=== PATIENT | male | born 1955 | race Caucasian/White ===

== ENCOUNTER 2017-05-22 05:30 | Observation (INO) | payer BC ==
[~2017-05-22] VITALS: Ht 180.3 cm; Wt 75.0 kg
[2017-05-22] MEDS ORDERED: RED0.25P PO (06:29)
[2017-05-22] MEDS ORDERED: CO Q100C9 PO (06:29)
[2017-05-22] MEDS ORDERED: CURCPOW PO (06:29)
[2017-05-22] MEDS ORDERED: VITA250T3 PO (06:29)
[2017-05-22] MEDS ORDERED: AMLO10 PO (06:29)
[2017-05-22] MEDS ORDERED: ACETAMINOPHEN 1000 MG/100 ML 100 ML IV ONE (06:51)
[2017-05-22] MEDS ORDERED: KETAMINE HCL 50 MG/5 ML SYRINGE ONE (06:51)
[2017-05-22] MEDS ORDERED: VANCOMYCIN HCL 1000 MG VIAL ONE (07:24)
[2017-05-22] MEDS ORDERED: ceFAZolin INJ 1,000 MG VIAL ONE ×2 (07:24→16:57)
[2017-05-22] MEDS ORDERED: SODIUM CHLOR 0.9% 250 ML INJ 250 ML ONE (07:25)
[2017-05-22] MEDS ORDERED: GENTAMICIN SULFATE 80 MG/2 ML VIAL ONE (07:25)
[2017-05-22] MEDS ORDERED: CHLORHEXIDINE GLUCONATE 4% SOLN 120 ML BTL TOPICAL SCH (07:30)
[2017-05-22] MEDS ORDERED: VANCOMYCIN 1000 MG/NS 250 ML (for <70 kg) IV SCH ×2 (07:30)
[2017-05-22] MEDS ORDERED: CEFAZOLIN INJ 2,000 MG in SODIUM CHLORIDE 0.9% INJ 100 ML IV SCH (07:30)
[2017-05-22] MEDS ORDERED: CHLORHEXIDINE GLUCONATE 2 % 1 PACK (2 CLOTHS) TOPICAL PRN (07:45)
[2017-05-22] MEDS ORDERED: POVIDONE IODINE 5% (ANTISEPSIS KIT) 4 APPLICATIONS EACH NARE PRN (07:45)
[2017-05-22] MEDS ORDERED: SODIUM CHLORID 0.9% 500 ML IV PRN (07:45)
[2017-05-22] MEDS ORDERED: METOPROLOL TARTRATE 25 MG TAB PO PRN (07:45)
[2017-05-22] MEDS ORDERED: LACTATED RINGER'S 1000 ML IV PRN (07:45)
[2017-05-22] MEDS ORDERED: NALOXONE HCL 0.4 MG/ML AMP IV PUSH PRN (10:15)
[2017-05-22] MEDS ORDERED: diphenhydrAMINE HCL 25 MG CAP PO PRN ×2 (10:15)
[2017-05-22] MEDS ORDERED: Post-op Orders (for Pharmacy) XX ONE (10:15)
[2017-05-22] MEDS ORDERED: MORPHINE SULFATE 4 MG/ML INJ IV PUSH PRN (10:15)
[2017-05-22] MEDS ORDERED: ONDANSETRON HCL 4 MG/2 ML VIAL IVP PRN (10:15)
--- NOTE | 2017-05-22 10:21 | PD.OP ---
cc: Varun Powell MD Operative Report Date of Surgery: May 22, 2017 Preoperative Diagnosis: Comminuted right calcaneus fracture Postoperative Diagnosis: Procedure: ORIF right calcaneus Anesthesia: Gen. Surgeon: Varun Powell Wire Coating Machine Operator(s): SINDHU Vazquez PA-C The surgical procedure was assisted by my physician mailroom assistant. My P.A. presence was necessary throughout this case for the manipulation and positioning of the surgical extremity. My P.A. was assisting me throughout the duration of this procedure. The skill set of a physician mailroom assistant was medically necessary to complete this procedure. During the surgical case the surgical brace maker was working at the back table and the physician mailroom assistant was directly assisting me. Operation and Findings: Tourniquet time: 80 minutes at 250 mmHg Implants used: Synthes Plan of activity: Nonweightbearing Informed consent obtained, operative site was marked. The foot and ankle were seen and evaluated this morning. Soft tissue swelling had significantly improved and appeared to be ready for surgery. He was brought to the operating room and placed on the operating room table. He was given intravenous sedation, general endotracheal anesthesia. He received IV antibiotics and was placed in the lateral decubitus position. Foot and leg were prepped with alcohol, followed by Hibiclens, draped in usual sterile fashion. A time out procedure was preformed. The procedure began with a 4 centimeter incision over the lateral aspect of the calcaneus centers over the subtalar joint. A full thickness flap was carefully elevated. The perineal tendons were also mobilized. Periosteum was elevated off the calcaneous. At this point the leg was elevated. The tourniquet was inflated. Attention was now turned to exposure of the calcaneus. The lateral wall was comminuted. A Steinmann pin was placed into the talus and into the calcaneus. Laminar biodiesel product development manager was now placed to help distract the fracture. Articular surface was now visualized. Articular surface was in several fragments. The medial fragment was elevated and reduced up to the talus and the K-wire was used to hold provisional fixation. Next, the lateral and posterior fragments of the posterior facet were reduced. The talus was used as a template for reduction. The K-wires were used to hold provisional fixation. The laminar biodiesel product development manager was now used to distract the posterior tuberosity. A Shands pin was placed to help joystick the transcript clerk tuberosity into appropriate position. Multiple K-wires result provisional fixation. Multiplanar fluoroscopy confirmed well aligned fracture. The anterior process was now reduced. This keyed into appropriate position. Additional K wires were used to hold provisional fixation. At this point a Synthes calcaneus plate was selected. Plate was placed underneath the peroneal tendons. Plate was provisionally held the bone with K wires. 2.7 cortical lag screws were placed through the plate to compress the posterior facet fragments. Good compression was obtained. Additional cortical and locking screws were placed into the plate. 4 small percutaneous incisions were made around the posterior heel. 4 long 3.5 cortical screws were placed in the posterior tuberosity into the anterior process. All screws were predrilled and premeasured for appropriate lengths. Fluoroscopy confirmed appropriate alignment of fracture. Final fluoroscopy confirmed well aligned fracture with well-placed hardware. Wound was thoroughly irrigated. Tourniquet was released. Hemostasis was confirmed. Fascia was closed with 0 Vicryl, subcutaneous tissues closed with 3-0 Vicryl, and skin was closed with 3-0 nylon. Sterile dressings were applied. Patient was placed into a well molded well-padded splint. Patient was transferred to recovery in stable condition. Varun Powell MD May 22, 2017 10:21
[2017-05-22] MEDS ORDERED: *MEPERIDINE 25 MG INJ VIAL PERIprocedural Use ONLY ONE (10:39)
[2017-05-22] MEDS ORDERED: *morphine SULFATE 4 MG/ML PERIprocedure ONLY ONE ×4 (10:43→11:03)
[2017-05-22] MEDS ORDERED: MIDAZOLAM HCL 2 MG/2 ML VIAL ONE (10:51)
[2017-05-22] MEDS ORDERED: *hydrOXYzine 25 MG VIAL PERIprocedural Use ONLY IM ONE (10:59)
[2017-05-22] MEDS ORDERED: KETOROLAC TROMETHAMINE 30 MG/ML (IVP) VIAL ONE (11:03)
[2017-05-22] MEDS ORDERED: HYDROmorphone HCL PF 2 MG/ML VIAL ONE ×3 (11:09→12:36)
[2017-05-22] MEDS: LACTATED RINGER'S 1000 ML INJ 1,000 ML IV SCH ×2 (11:30→20:06)
--- NOTE | 2017-05-22 11:32 | RADRPT ---
EXAM DATE/TIME: 05/22/2017 09:59 [facility] COMPARISON: No previous studies available for comparison. INDICATIONS : Right calcaneus open reduction internal fixation. MEDICAL HISTORY : None. SURGICAL HISTORY : None. ENCOUNTER: Initial ACUITY: 1 day PAIN SCORE: Non-responsive. LOCATION: Right heel FINDINGS: Anatomic alignment following open rereduction and internal fixation of calcaneal fracture... CONCLUSION: Anatomic alignment. Tan Reyna MD FACR on May 22, 2017 at 11:29 Board Certified Radiologist. This report was verified electronically.
[2017-05-22] MEDS ORDERED: ROCURONIUM INJ 50 MG/5 ML SYRINGE IV PUSH ONE (12:00)
[2017-05-22] MEDS ORDERED: LIDOCAINE HCL 1% PF 5 ML SYRINGE OTHER ONE (12:00)
[2017-05-22] MEDS ORDERED: ONDANSETRON HCL 4 MG/2 ML VIAL IV ONE (12:00)
[2017-05-22] MEDS ORDERED: PROPOFOL 200 MG/20 ML AMP IV ONE (12:00)
[2017-05-22] MEDS ORDERED: ceFAZolin INJ 1,000 MG VIAL IV ONE (12:00)
[2017-05-22] MEDS ORDERED: DEXAMETHASONE SOD PHOS 4 MG/ML VIAL IV ONE (12:00)
[2017-05-22] MEDS ORDERED: KETOROLAC TROMETHAMINE 30 MG/ML (IVP) VIAL IV PUSH ONE (12:15)
[2017-05-22] MEDS: ACETAMINOPHEN/HYDROcodone 325 MG/10 MG TAB PO PRN ×3 (14:00→23:43)
[2017-05-22] MEDS: CEFAZOLIN INJ 2,000 MG in SODIUM CHLORIDE 0.9% INJ 100 ML IV SCH (17:00)
[2017-05-22] MEDS: KETOROLAC TROMETHAMINE 60 MG/2 ML (IM) VIAL IM SCH ×2 (17:29→23:42)
[2017-05-22 18:20] VITALS: BP 139/79; PULSE 96; RESP 16; O2SAT 98
[2017-05-22] MEDS: VANCOMYCIN INJ 1,000 MG in SODIUM CHLOR 0.9% 250 ML INJ 250 ML IV SCH (20:06)
[2017-05-22 20:51] VITALS: O2SAT 99
--- NOTE | 2017-05-22 21:07 | EKG ---
Date Performed: 05/22/2017 Time Performed: 06:51:06 PTAGE: 62 years EKG: Sinus rhythm NORMAL ECG NO PREVIOUS TRACING DOCTOR: Geronimo Walton Interpretating Date/Time 05/22/2017 21:07:19
[2017-05-22 23:45] VITALS: BP 151/83; PULSE 81; RESP 18; TEMP 98.3; O2SAT 99
[2017-05-23] MEDS: ACETAMINOPHEN/HYDROcodone 325 MG/10 MG TAB PO PRN ×5 (02:39→17:39)
[2017-05-23] MEDS: CEFAZOLIN INJ 2,000 MG in SODIUM CHLORIDE 0.9% INJ 100 ML IV SCH ×2 (02:40→10:12)
[2017-05-23 04:05] VITALS: BP 136/73; PULSE 77; RESP 16; TEMP 98.1; O2SAT 99
[2017-05-23] MEDS: KETOROLAC TROMETHAMINE 60 MG/2 ML (IM) VIAL IM SCH ×3 (04:18→17:00)
[2017-05-23 07:35] VITALS: BP 137/71; PULSE 71; RESP 18; TEMP 98.4; O2SAT 99
[2017-05-23] MEDS: VANCOMYCIN INJ 1,000 MG in SODIUM CHLOR 0.9% 250 ML INJ 250 ML IV SCH (08:36)
[2017-05-23 11:39] VITALS: BP 141/71; PULSE 80; RESP 18; TEMP 98.3; O2SAT 98
--- NOTE | 2017-05-23 13:12 | HHI.DS ---
Discharge Summary Admission Date May 23, 2017 at 12:02 Discharge Date: May 23, 2017 Admitting Diagnosis right calcaneus fracture Diagnosis: (1) Calcaneus fracture, right Diagnosis: Principal ICD Codes: S92.001A - Unspecified fracture of right calcaneus, initial encounter for closed fracture Procedures ORIF of right calcaneus Hospital Course patient admitted for outpatient basis for ORIF of right calcaneus. He was running approximately 1 week ago he stepped into a hole on his right foot. Immediate pain. Unable to bear weight. He was seen and examined of [facility] where he was placed in a splint and referred to our office to Dr. Miller. Dr. Miller then referred him to us for surgical management. he was admitted from outpatient on 8 underwent surgery on that date. He was then taken to the sixth floor postsurgical. He tolerated the procedure well. On postoperative day 0 he was out of bed and named relating with crutches. I posted that one, his pain was well-controlled and his hemodynamically stable. His splint had bloody discharge in the posterior aspect of the splint. It was changed on postop day 1 by the [facility]. He is fit for discharge home. He'll remain nonweightbearing on the right leg and elevate his leg. He will follow up with Dr. Powell or his PA in 2 weeks in the office Pt Condition on Discharge: Good Discharge Disposition: Discharge Home Discharge Instructions Diet Instructions: As Tolerated, No Restrictions Activities You Can Perform: Non Weight Bearing Josh Szymanski PA/Qc Lab Technician PA May 23, 2017 13:12
[2017-05-23] MEDS ORDERED: WHEEMIS3 (13:13)
--- NOTE | 2017-05-23 13:15 | PD.ORT.PN ---
Subjective Subjective Remarks POD 1 s/p ORIF right calcaneus doinbg well. reports starting to get some pain in heel but controlled with meds. states he feels like he is able to go home Objective Vitals Vital Signs Date Time Temp Pulse Resp B/P (MAP) Pulse Ox O2 Delivery O2 Flow Rate FiO2 05/23/17 11:39 98.3 80 18 141/71 (94) 98 05/23/17 07:35 98.4 71 18 137/71 (93) 99 05/23/17 07:22 20 05/23/17 04:05 98.1 77 16 136/73 (94) 99 05/22/17 23:45 98.3 81 18 151/83 (105) 99 05/22/17 20:51 99 05/22/17 18:20 96 16 139/79 (99) 98 05/22/17 16:00 94 16 144/78 (100) 96 Room Air 05/22/17 14:00 90 16 159/86 (110) 100 Nasal Cannula 2 I/O 05/22/17 05/22/17 05/22/17 05/23/17 05/23/17 05/23/17 07:00 15:00 23:00 07:00 15:00 23:00 Intake Total 1780 ml 985 ml 1020 ml Output Total 230 ml 1100 ml 2225 ml Balance 1550 ml -115 ml -1205 ml Intake Oral 30 ml 460 ml 1020 ml IV Total 100 ml 525 ml Other 1650 ml Output Urine Total 200 ml 1100 ml 2225 ml Estimated Blood Loss 30 ml # Voids 1 3 # Bowel Movements 0 Procedures ORIF of right calcaneus Objective Remarks RLE: +short leg splint. intact. moderate bloody drainage on posterior splint. nvi. Assessment & Plan Problem List: (1) Calcaneus fracture, right ICD Codes: S92.001A - Unspecified fracture of right calcaneus, initial encounter for closed fracture Qualifiers: Qualified Codes: S92.011A - Displaced fracture of body of right calcaneus, initial encounter for closed fracture Assessment and Plan 1) Right Calcaneus Fx s/p ORIF - POD 1 -NWB -elevate -[facility] to replace splint -discharge home today -RX to be sent to his pharmacy from office -f/u with Sheyla or PA i n 2 weeks Josh Szymanski PA/Test Engineer Nuclear Equipment PA May 23, 2017 13:15
[2017-05-23 15:45] VITALS: BP 145/80; PULSE 69; RESP 18; TEMP 98.7; O2SAT 96
== END 2017-05-23 17:40 | disposition home health service (06) ==
LOC: HSDC 05:30 → EDSTATUS 08:15 → N06A 18:17 → HSDC 05-23 12:01 → UNDOADMOB 05-23 12:02 → N06A 05-23 12:02 → UNDODISOB 05-23 17:40
PROVIDERS: ADMIT Orthopaedic Surgery Orthopaedic Trauma; ATTEND Orthopaedic Surgery Orthopaedic Trauma
DX: S92.061A Displaced intraarticular fracture of right calcaneus, initial encounter for closed fracture (principal); X58.XXXA Exposure to other specified factors, initial encounter
CPT/HCPCS: 01480; 28415; 73650; 76000; 93005; 94150; 97161; C1713; G0378; J0131; J0690; J1100; J1170; J1580; J1885; J2175; J2250; J2270; J2405; J3010; J3370; J7050; J7120; J3410